=== PATIENT | female | born 1960 | race Caucasian/White ===

== ENCOUNTER → 2019-04-22 | Outpatient (CLI) | payer OTHER ==
--- NOTE | ~2019-04-22 | EKG ---
[place], [place] ELECTROCARDIOGRAM REPORT NAME: ZENAIDA HARMAN UNIT #: [id number] ROOM: DOCTOR: JULIANNA DRAFT REPORT BIRTHDATE: [birth year] [facility] Test Date: 2019-04-22 Test Time: 14:16:58 Pat Name: ZENAIDA HARMAN Department: Room: Gender: F [employer]: : 1960 Requested By: ROGELIO PRICE Order Number: [id number] Reading MD: Charles Dillard MD Measurements Intervals Leon Rate: 73 P: 66 AR: 155 QRS: 13 QRSD: 84 T: 21 QT: 395 QTc: 436 Interpretive Statements Sinus rhythm Borderline T abnormalities, anterior leads No previous ECG available for comparison Electronically Signed On 04-23-2019 11:40:50 PDT by Charles Dillard MD CM:EKGRPT:ELECTROCARDIOGRAM REPORT [id number] ROGELIO EASTON DRAFT REPORT ROGELIO PRICE DO
[2019-04-22 14:27] LABS: BASO % 0.6 % (0.0-1.0); EOS # 0.2 10*3/uL (0.0-0.4); EOS % 2.8 % (1.0-4.0); HEMATOCRIT 36.1 % (37.0-47.0); HEMOGLOBIN 11.5 g/dl (12.0-16.0); LYMPH % 31.2 % (27.0-41.0); MEAN CELL VOLUME 91.2 fl (81.0-99.0); MEAN CORPUSCULAR HGB CONC 31.9 g/dl (33.0-37.0); MEAN PLATELET VOLUME 10.2 fl (9.6-12.3); MONO # 0.5 10*3/uL (0.1-1.0); MONO % 6.9 % (3.0-9.0); NEUT # 3.8 10*3/uL (2.3-7.9); NEUT % 58.2 % (47.0-73.0); PLATELET COUNT AUTOMATED 195 10*3/uL (130-400); RED BLOOD COUNT 3.96 10*6/uL (4.10-5.10); RED CELL DISTRI WIDTH 14.6 % (0-14.5); WHITE BLOOD COUNT 6.5 10*3/uL (4.8-10.8)
[2019-04-22 14:53] LABS: ALBUMIN 3.5 gm/dl (3.1-4.5); ALKALINE PHOSPHATASE 90 U/L (45-117); BUN 14 mg/dl (7-24); CHLORIDE 108 mmol/L (98-107); POTASSIUM 3.7 mmol/L (3.5-5.1); SGOT/AST 25 IU/L (3-35); SGPT/ALT 39 U/L (12-78); SODIUM 142 mmol/L (136-145); TOTAL PROTEIN 6.7 gm/dL (6.4-8.2)
[2019-04-22 15:01] LABS: ACT PARTIAL THROMBO TIME 24.7 SECONDS (20.0-32.1); INTERNATIONAL NORM RATIO 0.9 (2.0-3.5)
[2019-04-22 15:14] LABS: BILIRUBIN NEGATIVE (NEGATIVE); BLOOD NEGATIVE (NEGATIVE); CLARITY SL CLOUDY (CLEAR); COLOR STRAW (YELLOW); GLUCOSE NEGATIVE (NEGATIVE); KETONE NEGATIVE (NEGATIVE); LEUKO ESTERASE NEGATIVE (NEGATIVE); NITRITE NEGATIVE (NEGATIVE); SPECIFIC GRAVITY <= 1.005 (1.005-1.030); UROBILINOGEN 0.2 E.U./dl (0.2-1.0)
[2019-04-22 16:54] LABS: BACTERIA TRACE
== END | disposition home or self-care (01) ==
LOC: LAB 13:52
PROVIDERS: Orthopaedic Surgery
DX: Z96.659 Presence of unspecified artificial knee joint (principal); M19.90 Unspecified osteoarthritis, unspecified site

== ENCOUNTER 2025-06-03 18:33 | Observation (INO) | payer MEDICARE ==
[~2025-06-03] VITALS: Ht 167.6 cm; Wt 89.5 kg
[2025-06-03 18:48] VITALS: BP 153/73
[2025-06-03] MEDS ORDERED: Synthroid,Levo25 MCG PO (18:53)
[2025-06-03 19:28] LABS: BASO # 0.0 10*3/uL (0.0-0.1); BASO % 0.4 % (0.0-1.0); EOS # 0.0 10*3/uL (0.0-0.4); EOS % 0.6 % (1.0-4.0); MEAN CELL VOLUME 88.4 fl (81.0-99.0); MEAN CORPUSCULAR HGB 29.1 pg (27.0-31.0); MEAN PLATELET VOLUME 8.7 fl (9.6-12.3); MONO # 0.7 10*3/uL (0.1-1.0); MONO % 9.4 % (3.0-9.0); NEUT # 4.4 10*3/uL (2.3-7.9); NEUT % 63.5 % (47.0-73.0); NUCLEATED RED BLOOD CELL 0.0 % (0.0-0.0); NUCLEATED RED BLOOD CELL 0.0 10*3/uL (0.0-0.0); PLATELET COUNT AUTOMATED 230 10*3/uL (130-400); RED CELL DISTRI WIDTH 14.6 % (0-14.5)
[2025-06-03 19:44] LABS: BUN 13 mg/dl (9-23); SGPT/ALT 8 U/L (5-49)
[2025-06-03 20:26] VITALS: BP 121/79
[2025-06-03] MEDS ORDERED: SODIUM CHLORIDE 0.9% 1,000 ML IV ONE (20:35)
[2025-06-03] MEDS ORDERED: Ondansetron Hydrochloride 4 MG/2 ML VIAL IV ONE (20:40)
[2025-06-03] MEDS ORDERED: Acetaminophen/Hydrocodone 5 MG/325 MG TABLET PO PRN (22:40)
[2025-06-03] MEDS ORDERED: BISACODYL 10 MG SUPP R PRN (22:40)
[2025-06-03] MEDS ORDERED: Ondansetron Hydrochloride 4 MG/2 ML VIAL IV PRN (22:40)
[2025-06-03] MEDS ORDERED: BISACODYL 5 MG TAB PO PRN (22:40)
[2025-06-03] MEDS ORDERED: ACETAMINOPHEN 325 MG TAB PO PRN (22:40)
[2025-06-03 22:48] VITALS: BP 124/77
[2025-06-04 00:10] VITALS: BP 114/58
[2025-06-04] MEDS ORDERED: ASPIRIN, CHEWABLE 81 MG TAB PO ONE (07:25)
[2025-06-04] MEDS ORDERED: ATORVASTATIN CALCIUM 80 MG TAB PO SCH (07:25)
[2025-06-04 08:00] VITALS: BP 126/70
[2025-06-04] MEDS ORDERED: ASPIRIN, CHEWABLE 81 MG TAB ONE (10:46)
[2025-06-04] MEDS ORDERED: ATORVASTATIN CA80 M1 PO (11:03)
[2025-06-04] MEDS ORDERED: PROTONIX TR40 MG PO (11:03)
[2025-06-04 12:00] VITALS: BP 108/69
== END 2025-06-04 11:04 | disposition home or self-care (01) ==
LOC: ED 18:33 → EDHOLD 22:08 → 5E 23:33
PROVIDERS: Emergency Medicine; ADMIT Internal Medicine; ATTEND Internal Medicine
DX: R07.89 Other chest pain (principal); E87.1 Hypo-osmolality and hyponatremia; K21.9 Gastro-esophageal reflux disease without esophagitis; E03.9 Hypothyroidism, unspecified; Z79.899 Other long term (current) drug therapy